=== PATIENT | female | born 1980 ===

== ENCOUNTER 2019-04-09 16:00 | Outpatient (CLI) | payer OTHER | END 2019-04-09 16:01 | disposition home or self-care (01) | LOC: SLEEPLAB 16:00 | PROVIDERS: ATTEND Dentist General Practice | DX: G47.33 Obstructive sleep apnea (adult) (pediatric) (principal) | CPT/HCPCS: 95806 ==

== ENCOUNTER 2019-05-26 11:17 | Outpatient (CLI) | payer OTHER ==
--- NOTE | 2019-05-26 11:53 | RAD ---
RADIOGRAPH CHEST 2 VIEWS: DATE: 05/26/2019 HISTORY: 38-year-old female with chest pain and cardiac arrhythmia FINDINGS: There is no airspace density, pulmonary edema, pleural effusion, pneumothorax, or cardiomegaly. IMPRESSION: No acute cardiopulmonary findings.
== END 2019-05-26 11:18 | disposition home or self-care (01) ==
LOC: BICRAD 11:17
PROVIDERS: ATTEND Family Medicine
DX: R07.9 Chest pain, unspecified (principal); I49.9 Cardiac arrhythmia, unspecified
CPT/HCPCS: 71046

== ENCOUNTER 2020-04-26 01:39 | Outpatient (CLI) | payer OTHER ==
[2020-04-26 22:23] LABS: SARS-CoV-2 MS2 Positive; SARS-CoV-2 N Gene Negative; SARS-CoV-2 S Gene Negative; SARS-CoV-2 orf1ab Negative
== END 2020-04-26 01:40 | disposition home or self-care (01) ==
LOC: ERS 01:39
PROVIDERS: ATTEND Obstetrics & Gynecology
DX: Z01.812 Encounter for preprocedural laboratory examination (principal); Z11.59 Encounter for screening for other viral diseases
CPT/HCPCS: 87635; U0003

== ENCOUNTER 2020-04-28 05:46 | Inpatient (IN) | payer OTHER ==
[2020-04-28] MEDS ORDERED: Ondansetron PF 4 MG/2 ML Vial IVP PRN ×3 (06:15→10:55)
[2020-04-28] MEDS ORDERED: Bicitra 30 ML UDCUP PO SCH (06:15)
[2020-04-28] MEDS ORDERED: CEFAZOLIN 2 GM in Premix Bag 1 BAG IVPB SCH (06:15)
[2020-04-28] MEDS ORDERED: hydrALAZINE 20 MG/ML VIAL SLOW IVP PRN ×2 (06:15→10:55)
[2020-04-28] MEDS ORDERED: Promethazine HCl 25 MG/ML VIAL IM PRN ×2 (06:15→08:19)
[2020-04-28 06:30] VITALS: BMI 25.7
[2020-04-28 06:49] LABS: Hemoglobin 14.3 g/dL (12.0-16.0); Mean Corpuscular HGB CONC 35.1 g/dL (32.0-36.0); Mean Corpuscular Hemoglobin 33.5 pg (27.0-31.0); Mean Corpuscular Volume 95.4 fL (78.0-98.0); Mean Platelet Volume 9.3 fL (7.4-10.4); Platelet Count 177 thou/uL (130-400); RBC Distribution Width 11.7 % (11.5-14.5); Red Blood Cell (RBC) Count 4.26 mill/uL (4.20-5.40); White Blood Cell (WBC) Count 14.7 thou/uL (4.8-10.8)
[2020-04-28] MEDS ORDERED: PHENYLEPHRINE-NS 100 MCG/ML 10 ML SYRINGE ONE (07:13)
[2020-04-28] MEDS ORDERED: EPHEDRINE 25 MG/5 ML SYRINGE ONE (07:13)
[2020-04-28] MEDS ORDERED: Oxytocin 10 UNITS/ML VIAL ONE (07:13)
[2020-04-28] MEDS ORDERED: MORPHINE 5 MG/10 ML PF VIAL ONE (07:13)
[2020-04-28] MEDS ORDERED: Ondansetron PF 4 MG/2 ML Vial ONE (07:14)
[2020-04-28] MEDS ORDERED: Misoprostol 200 MCG TAB PR SCH (07:15)
[2020-04-28 07:29] LABS: Syphilis Antibody Nonreactive (Nonreactive); Syphilis Antibody Index 0.03 S/CO (<1.00 Non-Reactive)
[2020-04-28] MEDS ORDERED: Promethazine HCl 25 MG SUPP PR PRN (08:19)
[2020-04-28] MEDS ORDERED: diphenhydrAMINE 50 MG/ML VIAL IVP PRN (08:19)
[2020-04-28] MEDS ORDERED: Naloxone HCl 0.4 mg/ml Vial IV PRN (08:19)
[2020-04-28] MEDS ORDERED: Naloxone HCl 0.4 mg/ml Vial IVP PRN ×2 (08:19)
[2020-04-28] MEDS ORDERED: Misoprostol 200 MCG TAB ONE (08:20)
[2020-04-28] MEDS ORDERED: Communication Order-Pharmacy FS SCH (08:30)
[2020-04-28 09:02] LABS: HBSAg Index 0.18 S/CO (0-0.99); Hep B Surf Ag Non-Reactive S/CO (NonReactive)
[2020-04-28] MEDS ORDERED: Ketorolac Tromethamine 30 MG/ML VIAL ONE (09:26)
[2020-04-28] MEDS: Ketorolac Tromethamine 30 MG/ML VIAL IVP PRN ×2 (09:27→15:21)
[2020-04-28] MEDS ORDERED: Morphine 4 MG/ML VIAL SLOW IVP SCH (10:45)
[2020-04-28] MEDS ORDERED: Acetaminophen 325 MG TAB PO PRN (10:55)
[2020-04-28] MEDS ORDERED: Simethicone Chewable 80 MG TAB PO PRN (10:55)
[2020-04-28] MEDS ORDERED: Lanolin Ointment 7 GM TUBE TOP PRN (10:55)
[2020-04-28] MEDS ORDERED: NS / Oxytocin 40 units/1000ml 1,000 ML IV SCH (10:55)
--- NOTE | 2020-04-28 15:38 | OP ---
DATE OF PROCEDURE: 04/28/2020 was done this morning. PREOPERATIVE DIAGNOSES: 1. 38-39-week intrauterine . 2. History of prior section, desires repeat. 3. Advanced maternal age. 4. High-risk with family history of term demise. Delivery advised by Maternal- Medicine at 38 weeks. POSTOPERATIVE DIAGNOSES: 1.38-39-week intrauterine . 2. History of prior section, desires repeat. 3. Advanced maternal age. 4. High-risk with family history of term demise. Delivery advised by Maternal- Medicine at 38 weeks. PROCEDURE PERFORMED: Repeat low transverse section via Pfannenstiel incision. ADVERTISING SALES EXECUTIVE: Dr. Saleem Paz. ANESTHESIOLOGIST: Dr. Durbin. ANESTHESIA USED: Spinal. ESTIMATED BLOOD LOSS: 500 mL. QUANTITATIVE BLOOD LOSS: Pending. URINE OUTPUT: Approximately 100 mL of clear yellow urine noted via the Han catheter upon leaving the room. FINDINGS: Include a baby boy in a vertex presentation with clear amniotic fluid. Apgars are 9 and 9. Weight is currently pending. Pathology is none. INDICATIONS: This is a multiparous female, advanced maternal age with a term intrauterine at 38+ weeks, advised for delivery between 38 and 39 weeks. This is secondary to a family history of term demise and suspected possible autoimmune disease. The patient has been on baby aspirin throughout the , however, her autoimmune workup has been negative. She does have a sister with, again a demise at approximately 38 weeks. Risks, benefits, indications and alternatives of the surgery reviewed with her and informed consent has been obtained. She desired to proceed as planned. DESCRIPTION OF OPERATION: The patient was taken to the operating room, where she was placed in the seated position and given spinal anesthesia. She was then placed in the supine position with a leftward tilt, and prepped and draped in usual sterile fashion. Time-out procedures performed. Sponge, lap, needle, and instrument counts were noted to be correct. The patient was tested and noted to be without discomfort. Skin incision was then made using the scalpel. The scar was excised and handed off. The incision was then extended through the fascia, which was incised transversely. The fascia was then dissected free from the underlying rectus muscles. The rectus muscles were in the midline. The peritoneum was entered sharply. Peritoneal incision was extended with good visualization of the bladder. The bladder blade was then inserted and the vesicouterine peritoneum was identified, tented up, and entered sharply. This incision was extended laterally and a bladder flap was created digitally. The uterus was then incised using the scalpel. The incision was extended bluntly. There was noted to be clear amniotic fluid. The infant's head was delivered atraumatically. Loose nuchal cord was delivered through. Nose and mouth were then bulb suctioned and after 1 minute, the cord was clamped and cut. Crying vigorous infant was handed off to waiting pediatric staff. Cord blood was then taken. Pitocin was given IV from Anesthesia. The uterus was then massaged and the placenta was removed without difficulty. Placenta was handed off. The uterus was then exteriorized and cleared of all clots and debris. The uterine incision was repaired using 0 Monocryl in a running fashion. Two sutures were used, each beginning at the lateral-most aspect of the incision and meeting along the midline. Hemostasis was assured. The dorsal aspect of the bladder flap was inspected and small bleeders were fulgurated using the Bovie. The posterior gutter was cleaned and the uterus was then returned to the abdomen. The uterine incision and bladder flap were reinspected and noted to be hemostatic. The peritoneum was then reapproximated using 2-0 Monocryl. The dorsal aspect of the fascia and the rectus muscles were inspected and small bleeders were fulgurated using the Bovie. The rectus muscles along the lower aponeurosis were reapproximated using a single [id number] suture. The fascia was then approximated using 0 Vicryl in a running locked fashion. Two sutures were used, each beginning at the lateral-most aspect of the incision and meeting along the midline. The subcuticular tissues then profusely irrigated with warm normal saline. Small bleeders were fulgurated using the Bovie. The subcuticular fat was then reapproximated using 2-0 plain gut in a running fashion. The skin was then closed in a running subcuticular fashion using 3-0 Monocryl on a Omar needle. Dermabond and bandages were placed. The patient's drapes were removed and she was evaluated with uterine massage and 400 mcg of Cytotec were placed rectally for postoperative additional uterotonic effect and reduced blood loss in the postoperative period. She was replaced to the supine position. Sponge, lap, needle and instrument counts were correct x4 and throughout the procedure. Postprocedure time-out was performed with the estimated blood loss of 500 mL and QBL pending. weight is additionally pending. The patient was taken to the recovery room in stable condition, where her immediate and remote prognosis is excellent . Job ID: [id number] [id number]
[2020-04-28] MEDS: Lactated Ringer's 1,000 ML IV SCH ×2 (18:29→20:13)
[2020-04-28] MEDS: Docusate Calcium (SURFAK) 240 MG CAP PO SCH (20:15)
[2020-04-28] MEDS: HYDROcodone/Acetaminophen 5/325 mg Tablet PO PRN (20:15)
[2020-04-28] MEDS: Ferrous Sulfate 325 MG TAB PO SCH (23:41)
[2020-04-28] MEDS ORDERED: diphenhydrAMINE 25 MG CAP PO PRN (23:47)
[2020-04-29] MEDS: HYDROcodone/Acetaminophen 5/325 mg Tablet PO PRN ×6 (00:06→22:09)
[2020-04-29] MEDS: Lactated Ringer's 1,000 ML IV SCH ×4 (06:04→22:14)
[2020-04-29 06:39] LABS: Hemoglobin 12.1 g/dL (12.0-16.0); Mean Corpuscular HGB CONC 33.8 g/dL (32.0-36.0); Mean Corpuscular Volume 97.8 fL (78.0-98.0); Mean Platelet Volume 8.8 fL (7.4-10.4); Platelet Count 149 thou/uL (130-400); RBC Distribution Width 11.7 % (11.5-14.5); Red Blood Cell (RBC) Count 3.66 mill/uL (4.20-5.40)
[2020-04-29] MEDS: Docusate Calcium (SURFAK) 240 MG CAP PO SCH ×2 (08:36→22:05)
[2020-04-29] MEDS: Prenatal Vitamin 1 TAB PO SCH (08:36)
[2020-04-29] MEDS: Ferrous Sulfate 325 MG TAB PO SCH ×2 (08:42→22:05)
[2020-04-29] MEDS ORDERED: Adacel (T-DAP) 0.5 ML SYRINGE IM ONE (09:00)
[2020-04-29] MEDS: Ibuprofen 800 MG TAB PO SCH ×2 (13:40→22:05)
[2020-04-30] MEDS: Ibuprofen 800 MG TAB PO SCH (06:30)
[2020-04-30] MEDS: HYDROcodone/Acetaminophen 5/325 mg Tablet PO PRN ×2 (07:52→12:28)
[2020-04-30 08:21] VITALS: BP 110/71; TEMP 97.7
[2020-04-30] MEDS: Docusate Calcium (SURFAK) 240 MG CAP PO SCH (08:52)
[2020-04-30] MEDS: Prenatal Vitamin 1 TAB PO SCH (08:52)
[2020-04-30] MEDS: Ferrous Sulfate 325 MG TAB PO SCH (09:09)
[2020-04-30] MEDS: Lactated Ringer's 1,000 ML IV SCH (12:24)
== END 2020-04-30 13:35 | disposition home or self-care (01) | DRG 788 ==
LOC: L&D 05:46 → 3SE 11:54
PROVIDERS: ADMIT Obstetrics & Gynecology; ATTEND Obstetrics & Gynecology
PROC: 10D00Z1 Extraction of Products of Conception, Low, Open Approach (ICD-10-PCS; principal; 2020-04-28)
DX: O34.211 Maternal care for low transverse scar from previous cesarean delivery (principal); O99.344 Other mental disorders complicating childbirth; F41.9 Anxiety disorder, unspecified; N60.39 Fibrosclerosis of unspecified breast; O99.72 Diseases of the skin and subcutaneous tissue complicating childbirth; Z79.899 Other long term (current) drug therapy; Z3A.38 38 weeks gestation of pregnancy; Z37.0 Single live birth
CPT/HCPCS: 36415; 51702; 85027; 86780; 86850; 86900; 86901; 87340; 87635; J1200; J1885; J2270; J2274; J2405; J2590; U0003